=== PATIENT | female | born 1955 | race Caucasian/White ===

== ENCOUNTER 2022-11-22 21:58 | Emergency (ER) | payer OTHER, SELFPAY ==
[2022-11-22 22:21] VITALS: BP 123/86; PULSE 89; RESP 18; O2SAT 95; BMI 22.7
--- NOTE | 2022-11-22 22:41 | ED_ITS ---
HPI - SOB/Dyspnea General Chief Complaint: Cough Stated Complaint: covid postive, wants medication for it. Time Seen by Provider: 11/22/22 22:27 History of Present Illness HPI Narrative: Pt is a 66 year old woman who presents with cough and congestion. She began having symptoms yesterday. She tested positive for COVID 19 today and would like to be treated with Paxlovid. Pt has only low grade fever, no chills, no nausea, vomiting. Her oxygen saturation is 95 % on room air. Pt has no chest pain. Pt eating and drinking fine. Pt has had no sick contacts and no other symptoms. Related Data Home Medications Medication Instructions Recorded Confirmed levothyroxine 100 mcg capsule 100 mcg PO .three times per week 11/22/22 11/22/22 levothyroxine 88 mcg tablet 88 mcg PO .4x per week 11/22/22 11/22/22 Previous Rx's Medication Instructions Recorded nirmatrelvir 300 mg (150 mg See Rx Instructions PO .COMPLEX 11/22/22 x2)-ritonavir 100 mg tablet,dose #30 ea pack(EUA) (Paxlovid) Allergies Allergy/AdvReac Type Severity Reaction Status Date / Time No Known Drug Allergies Allergy Verified 11/22/22 22:20 Review of Systems Status of ROS: Reports: 10 or more systems reviewed and unremarkable except as noted in History and below [facility] Medical History (Updated 11/22/22 @ 22:46 by Raul Vieyra MD) Hypothyroidism Surgical History (Updated 11/22/22 @ 22:26 by Dinorah Chau RN) History of tonsillectomy Social History Smoking Status: Former smoker Do you use any of these nicotine containing products: None Second hand tobacco smoke exposure: No How often do you have a drink containing alcohol: never How often do you have six or more drinks on one occasion: Never AUDIT-C Alcohol total score: 0 Non-prescribed substance use: denies use service: No Exam Narrative: Exam Narrative: EXAM GENERAL: Patient appears comfortable and well. EYES: No scleral icterus. THYROID: no thyroid nodules or thyromegaly. LYMPH: No supraclavicular or cervical lymphadenopathy. SKIN: Visible skin seen during exam normal or with benign process only. EXT: No dependent lower extremity pedal edema. HEART: Regular rate and rhythm with no murmurs, rubs, or gallops. LUNGS: Clear to auscultation bilaterally with no crackles or wheezes. ABD: Soft, non tender, non distended. PSYCH: Good eye contact, speech is not pressured. Const: Vital Signs, click to edit/add: Vital Signs - 24 hr 11/22/22 22:21 Pulse Rate [Pulse Oximeter] 89 Respiratory Rate 18 Blood Pressure [Le ft Upper Arm] 123/86 Pulse Oximetry 95 Oxygen Delivery Me thod Room Air Course Course Hospital Course: Pt seen and examined. Vital Signs Vital signs: Initial Vital Signs Pulse Rate 89 11/22/22 22:21 Respiratory Rate 18 11/22/22 22:21 Blood Pressure 123/86 11/22/22 22:21 Blood Pressure Mean 98 11/22/22 22:21 Pulse Oximetry 95 11/22/22 22:21 Oxygen Delivery Method 11/22/22 22:21 Vital Signs Pulse Rate 89 11/22/22 22:21 Respiratory Rate 18 11/22/22 22:21 Blood Pressure 123/86 11/22/22 22:21 Pulse Oximetry 95 11/22/22 22:21 Oxygen Delivery Method 11/22/22 22:21 Pulse Rate 89 11/22/22 22:21 Respiratory Rate 18 11/22/22 22:21 Blood Pressure 123/86 11/22/22 22:21 Pulse Oximetry 95 11/22/22 22:21 Oxygen Delivery Method 11/22/22 22:21 MDM - SOB/Dyspnea MDM Narrative Medical decision making narrative: Pt is a reasonably healthy 66 year old woman who presents with COVID. All symptoms are explainable via COVID. She would like Paxlovid which is sent to her pharmacy. Exam and vitals otherwise unremarkable. Differential Diagnosis Differential diagnosis: Likely acute exacerbation of chronic obstructive airways disease, congestive heart failure, community acquired pneumonia and asthma with exacerbation Discharge Plan Discharge Clinical Impression: COVID-19 Patient Disposition: Home, Self-Care Condition: Stable Instructions: COVID-19 (Coronavirus Disease 2019) (ED) Additional Instructions: Paxlovid as directed Isolation for 5 days and mask for additional 5 days Tylenol Motrin Rest Fluid Activity Level: No Restrictions Discharge Diet: Regular Prescriptions: New Paxlovid (EUA) 300 mg (150 mg x 2)-100 mg tablets,dose pack See Rx Instructions .ROUTE .COMPLEX Qty: 30 0RF Rx Instructions: take TWO 150 mg tablets of nirmatrelvir with ONE 100 mg tablet of ritonavir twice daily for 5 days No Action levothyroxine 88 mcg tablet 88 mcg PO .4x per week levothyroxine 100 mcg capsule 100 mcg PO .three times per week Stand Alone Forms: [id number] Info Instructions
== END 2022-11-22 23:04 | disposition home or self-care (01) ==
LOC: ED 22:48
PROVIDERS: Emergency Provider Internal Medicine
DX: U07.1 COVID-19 (principal)
CPT/HCPCS: 99283; 99284

== ENCOUNTER 2025-04-26 10:39 | Outpatient (CLI) | payer OTHER, SELFPAY | END 2025-04-26 10:40 | disposition home or self-care (01) | LOC: NFLDREF 05-01 00:41 | PROVIDERS: Visit Provider Physician Assistant | DX: N39.0 Urinary tract infection, site not specified (principal); B96.20 Unspecified Escherichia coli [E. coli] as the cause of diseases classified elsewhere | CPT/HCPCS: 87086 ==